=== PATIENT | female | born 1980 | race Caucasian/White ===

== ENCOUNTER → 2021-10-01 | Outpatient (CLI) | payer OTHER ==
[~2021-10-01] MED LIST: E-Z-GAS II EFFERVESCENT PACKET (SODIUM BICARB./CITRIC ACID/SIMETHICONE) As Ordered ONE; E-Z-HD 98% w/w 340GM SUSP BTL As Ordered ONE; E-Z-PAQUE 96% w/w SUSP 176GM BTL As Ordered ONE
== END ==
LOC: M RAD 07:42
PROVIDERS: ATTEND Registered Nurse
DX: K21.9 Gastro-esophageal reflux disease without esophagitis (principal)

== ENCOUNTER → 2024-03-28 | Outpatient (CLI) | payer OTHER ==
[~2024-03-28] MED LIST changes: +ACETAMINOPHEN 650MG PO PRIOR TO INFUSION PO ONE; +ALBUTEROL SULFATE 2.5MG/0.5ML INH NEB SOLN INH PRN; -E-Z-GAS II EFFERVESCENT PACKET (SODIUM BICARB./CITRIC ACID/SIMETHICONE) As Ordered ONE; -E-Z-HD 98% w/w 340GM SUSP BTL As Ordered ONE; -E-Z-PAQUE 96% w/w SUSP 176GM BTL As Ordered ONE; +EPINEPHrine INJ 1 MG/ML 1ML AMP IM PRN; +ESSETAB4 PO; +NS 1,000 ML IV SCH; +OMEP40CA4 PO; +diphenhydrAMINE 25MG PO PRIOR TO INFUSION PO ONE; +diphenhydrAMINE 50MG/ML VIAL IV PRN; +methylPREDNISolone 125MG 2ML VIAL IV PRN
[2024-03-28 10:30] VITALS: BP 118/69; O2SAT 100
[2024-03-28] MEDS: FERRIC CARBOXYMALTOSE INJ 750 MG in NS 250 ML (>50kg) IV ONE (10:39)
[2024-03-28 11:55] VITALS: BP 105/64; O2SAT 98
== END ==
LOC: M INFU 10:20
PROVIDERS: ATTEND Family Medicine
DX: D50.9 Iron deficiency anemia, unspecified (principal)
CPT/HCPCS: 96365; J1439

== ENCOUNTER 2024-04-04 15:00 | Outpatient (CLI) | payer OTHER ==
[~2024-04-04 15:00] MED LIST changes: -ACETAMINOPHEN 650MG PO PRIOR TO INFUSION PO ONE; +diphenhydrAMINE 25MG CAP PO ONE; -diphenhydrAMINE 25MG PO PRIOR TO INFUSION PO ONE
[2024-04-04 15:10] VITALS: BP 111/54; O2SAT 100
[2024-04-04] MEDS: ACETAMINOPHEN TAB 650MG DOSE (2X325MG) PO ONE (15:15)
[2024-04-04] MEDS: FERRIC CARBOXYMALTOSE INJ 750 MG in NS 250 ML (>50kg) IV ONE (15:34)
== END 2024-04-04 17:00 | disposition home or self-care (01) ==
LOC: M INFU 15:00
PROVIDERS: ATTEND Family Medicine
DX: D50.9 Iron deficiency anemia, unspecified (principal)
CPT/HCPCS: 96365; J1439

== ENCOUNTER → 2025-07-03 | Outpatient (CLI) | payer OTHER ==
[~2025-07-03] MED LIST changes: -ALBUTEROL SULFATE 2.5MG/0.5ML INH NEB SOLN INH PRN; -EPINEPHrine INJ 1 MG/ML 1ML AMP IM PRN; -NS 1,000 ML IV SCH; -diphenhydrAMINE 25MG CAP PO ONE; -diphenhydrAMINE 50MG/ML VIAL IV PRN; -methylPREDNISolone 125MG 2ML VIAL IV PRN
== END ==
LOC: M WHC 09:25
PROVIDERS: ATTEND Physician Assistant
DX: Z12.31 Encounter for screening mammogram for malignant neoplasm of breast (principal)